=== PATIENT | male | born 1990 | race Caucasian/White ===

== ENCOUNTER 2017-03-12 12:48 | Emergency (ER) | payer OTHER ==
[2017-03-12 14:15] VITALS: BP 142/84; PULSE 85; RESP 18; TEMP 98.3; O2SAT 99
--- NOTE | 2017-03-12 14:39 | ED PDOC ---
HPI: General Adult Time Seen by Provider: 03/12/17 13:26 Chief Complaint (Nursing): Medical Clearance Chief Complaint (Provider): Medical clearance History/Exam Limitations: no limitations Have you had recent travel within the past 21 days to any of the following countries: [place], [place], [place] or [place]?: No Additional History Per: Patient Additional Complaint(s): Patient w/ no significant PMH or psychiatric history, brought to ED by police department for medical clearance. Patient denies any medical complaints; denies any fever, chills, chest pain, shortness of breath, abdominal pain, trauma or injuries. Denies feeling depressed, hearing voices, SI, or HI. Past Medical History Reviewed: Historical Data, Nursing Documentation, Vital Signs Vital Signs: Last Vital Signs Temp 98.3 F 03/12/17 14:15 Pulse 85 03/12/17 14:15 Resp 18 03/12/17 14:15 BP 142/84 03/12/17 14:15 Pulse Ox 99 03/12/17 15:09 - Medical History PMH: No Chronic Diseases - Surgical History Surgical History: No Surg Hx - Family History Family History: States: Unknown Family Hx - Immunization History Hx Tetanus Toxoid Vaccination: No - Home Medications Home Medications: Ambulatory Orders Medication Instructions Recorded Acetaminophen with Codeine 1 tab PO Q4 PRN #10 tab 02/24/15 [Tylenol with Codeine No. 3 300 mg-30 mg] No Known Home Med 02/24/15 - Allergies Allergies/Adverse Reactions: Allergies Allergy/AdvReac Type Severity Reaction Status Date / Time No Known Allergies Allergy Verified 02/24/15 14:59 Review of Systems ROS Statement: Except As Marked, All Systems Reviewed And Found Negative Cardiovascular: Negative for: Chest Pain Respiratory: Negative for: Shortness of Breath Gastrointestinal: Negative for: Abdominal Pain Physical Exam - Reviewed Nursing Documentation Reviewed: Yes Vital Signs Reviewed: Yes - Physical Exam Appears: Positive for: Non-toxic, No Acute Distress Head Exam: Positive for: ATRAUMATIC, NORMAL INSPECTION, NORMOCEPHALIC Skin: Positive for: Normal Color Eye Exam: Positive for: EOMI, PERRL Neck: Positive for: Supple Cardiovascular/Chest: Positive for: Regular Rate, Rhythm. Negative for: Murmur Respiratory: Positive for: Normal Breath Sounds. Negative for: Rales, Rhonchi, Wheezing Gastrointestinal/Abdominal: Positive for: Normal Exam, Soft. Negative for: Tenderness Back: Positive for: Normal Inspection Extremity: Positive for: Normal ROM Neurologic/Psych: Positive for: Alert, Oriented. Negative for: Motor/Sensory Deficits - ECG O2 Sat by Pulse Oximetry: 99 (RA) Pulse Ox Interpretation: Normal Medical Decision Making Medical Decision Making: Impression: Medical clearance Plan: -- Patient medically cleared, currently pending psychiatric clearance. Time: 1500 Provider asked patient if he had any suicidal or homicidal ideation, which he denies. Crisis made aware to see the patient. Scribe Attestation: Documented by Marline Conklin acting as a scribe for DAMIAN Foley Provider Attestation: All medical record entries made by the Scribe were at my direction and personally dictated by me. I have reviewed the chart and agree that the record accurately reflects my personal performance of the history, physical exam, medical decision making, and the department course for this patient. I have also personally directed, reviewed, and agree with the discharge instructions and disposition. Disposition - Clinical Impression Clinical Impression: Medical clearance for incarceration Counseled Patient/Family Regarding: Diagnosis - Disposition Disposition: Discharged/Transfer to Law Enforcement Disposition Time: 14:15 Condition: STABLE Additional Instructions: Patient is medically and psychiatrically cleared for incarceration. 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
== END 2017-03-12 15:00 | disposition left against medical advice (07) ==
LOC: H.ER 12:48

== ENCOUNTER 2017-03-29 19:14 | Emergency (ER) | payer OTHER ==
[2017-03-29 19:21] VITALS: BP 125/79; PULSE 63; RESP 16; TEMP 97.8; O2SAT 99
--- NOTE | 2017-03-29 19:42 | ED PDOC ---
HPI: Abdomen History Per: Patient Onset/Duration Of Symptoms: Hrs Outside of [place] travel?: No Current Symptoms Are (Timing): Still Present Pain Scale Rating Of: 7 Location Of Pain/Discomfort: Periumbilical Quality Of Discomfort: Sharp, Other Associated Symptoms: Vomiting Exacerbating Factors: None Alleviating Factors: None Last Bowel Movement: Today <Brigido Huntley - Last Filed: 03/29/17 19:58> <Marilee Morris - Last Filed: 03/29/17 20:42> Time Seen by Provider: 03/29/17 19:26 Chief Complaint (Nursing): Abdominal Pain Additional Complaint(s): 26 yo ,m, no significant PMhx presents to Ed c/o Abdominal pain left periumbilical started this afternoon 1-2pm, sharp. 7/10 intensity, not radiated , associated with 2 non-bloody vomiting. He denies fever, diarrhea, constipation , heartburn, cough, nasal congestion, chest pain. Patient reports he took a laxative medications does not recall the name and has had 10 BM no diarrhea, but pain still persists. Patienet report he ate between yesterday and today a loaf of wheat bread. He denies gluten allergies (Brigido Huntley) Supervising Attending Note <Brigido Huntley - Last Filed: 03/29/17 19:58> - Supervising Attending Note The Documented history was done by the: Physician Cane Weigher, Attending Physician The documented physical exam was done by the: Physician Cane Weigher, Attending Physician - Attestation: I have personally seen and examined this patient.: Yes I have fully participated in the care of the patient.: Yes I have reviewed all pertinent clinical information: Yes <Marilee Morris - Last Filed: 03/29/17 20:42> - Notes: Notes:: Pt reports that he did not want to have any blood taken for tests or any medications or radiation due to latter day reasons. He is alert and oriented x 3. Understands need for these test to rule out any serious or life threatening disease process. He understands risk, and refuses any. AMA signed. (Marilee Morris) - AMA Patient Left Against Medical Advice: The patient declines admission to the hospital and wishes to leave the Emergency Department. This action is against my medical advice. This decision was made with informed refusal. The patient was told that admission to the hospital is necessary. Explanation of the reasons why were discussed. The risks of leaving were explained to the patient and include, but are not limited to, worsening of known or currently unknown conditions, permanent disability and from undiagnosed or untreated conditions. The patient has the capacity to make this informed decision and understands my explanation of the current medical problem and risks of leaving. The patient voluntarily accepts these risks and signed an AMA form documenting our conversation. The patient was given the opportunity to ask questions and reconsider. The patient was encouraged to return to the Emergency Department at any time for further care. Past Medical History - Medical History PMH: No Chronic Diseases - Family History Family History: States: Unknown Family Hx - Immunization History Hx Tetanus Toxoid Vaccination: No <Brigido Huntley - Last Filed: 03/29/17 19:58> <Marilee Morris - Last Filed: 03/29/17 20:42> Vital Signs: Last Vital Signs Temp 97.8 F 03/29/17 19:19 Pulse 63 03/29/17 19:19 Resp 16 03/29/17 19:19 BP 125/79 03/29/17 19:19 Pulse Ox 99 03/29/17 20:09 - Home Medications Home Medications: Ambulatory Orders Medication Instructions Recorded Acetaminophen with Codeine 1 tab PO Q4 PRN #10 tab 02/24/15 [Tylenol with Codeine No. 3 300 mg-30 mg] No Known Home Med 02/24/15 - Allergies Allergies/Adverse Reactions: Allergies Allergy/AdvReac Type Severity Reaction Status Date / Time No Known Allergies Allergy Verified 02/24/15 14:59 Review of Systems Constitutional: Negative for: Fever ENT: Negative for: Ear Pain Cardiovascular: Negative for: Chest Pain Respiratory: Negative for: Cough Gastrointestinal: Positive for: Vomiting, Abdominal Pain. Negative for: Diarrhea Skin: Negative for: Rash <Brigido Huntley - Last Filed: 03/29/17 19:58> Physical Exam - Physical Exam Appears: Positive for: Well, Non-toxic. Negative for: No Acute Distress Skin: Positive for: Normal Color Eye Exam: Positive for: Normal appearance Neck: Positive for: Normal Cardiovascular/Chest: Positive for: Regular Rate, Rhythm Respiratory: Positive for: Normal Breath Sounds. Negative for: Crackles, Rales , Wheezing Gastrointestinal/Abdominal: Positive for: Bowel Sounds, Soft, Tenderness (RLQ TD , no rebound, no guarding. ). Negative for: Guarding, Rebound Back: Positive for: Normal Inspection Extremity: Positive for: Normal ROM. Negative for: Tenderness <CasieBrigido vance - Last Filed: 03/29/17 19:58> - ECG O2 Sat by Pulse Oximetry: 99 <Brigido Huntley - Last Filed: 03/29/17 19:58> <Marilee Morris - Last Filed: 03/29/17 20:42> - Progress ED Course And Treament: 19: 40 hari Patient evaluated for abdominal pain located over left side periumbilical area, but TD only over RLQ Impression Abdominal pain to r/o Acute appendicitis, Acute pancreatitis, Acute Gastritis, Acute gastroenteritis Plan Labs: CBC, CMP, lipase, Ua, Urine tox, ETOH serum level Imaging: Ct Abd Meds: Zofran, Pepcid, IV fluids (Brigido Huntley) Disposition <Brigido Huntley - Last Filed: 03/29/17 19:58> - Disposition Disposition: Against Medical Advice Disposition Time: 20:30 <Marilee Morris - Last Filed: 03/29/17 20:42> - Clinical Impression Clinical Impression: Abdominal pain - Disposition Condition: UNKNOWN Additional Instructions: RETURN TO ER FOR FURTHER EVALUATION Instructions: Leaving Against Medical Advice Forms: [employer] ([place])
[2017-03-29] MEDS ORDERED: Dextrose 5%/0.9% NS 1,000 ML IV SCH (19:45)
[2017-03-29 21:07] LABS: BARBITURATES, UR NEGATIVE (NEGATIVE); BENZODIAZEPINES, UR NEGATIVE (NEGATIVE); OPIATES, UR NEGATIVE (NEGATIVE); PHENCYCLIDINE, UR NEGATIVE (NEGATIVE)
== END 2017-03-29 20:31 | disposition left against medical advice (07) ==
LOC: H.ER 19:14
DX: R10.9 Unspecified abdominal pain (principal)